=== PATIENT | female | born 1980 | race Caucasian/White ===

== ENCOUNTER 2018-07-20 10:22 | Inpatient (IN) | payer SELFPAY ==
[2018-07-20] VITALS (18 sets, daily range): BP systolic 116–144; BP diastolic 62–95; PULSE 59–75; RESP 15–18; TEMP 36.1–37; O2SAT 95–100; BMI 38.9
[2018-07-20 11:08] LABS: Absolute Neutrophil Count 7.8 X10^3/uL (2.0-7.7); Basophil# 0.02 X10^3/uL; Basophil% 0.2 % (0-1); Eosinophil# 0.07 X10^3/uL; Eosinophils% 0.7 % (0-5); Hematocrit 37.1 % (37-47); Hemoglobin 12.4 g/dl (12.0-15.0); Lymphocyte % 14.1 % (19-41); Mean Corp Hgb Conc 33.4 g/gl (32-36); Mean Corpuscular Hgb 31.1 pg (27.0-32.0); Mean Platelet Vol. 10.7 fl (6.2-12.0); Monocyte# 0.63 X10^3/uL; Monocyte% 6.4 % (0-10); Neutrophil # 7.78 X10^3/uL (2.7-7.7); Neutrophil % 78.5 % (47-70); Platelet Count 273 K/mm3 (150-450); RBC Distribution Width CV 13.2 % (11.6-14.6); RBC Distribution Width SD 44.8 fl (35.1-43.9); Red Blood Count 3.99 M/mm3 (4.2-5.4); White Blood Count 9.9 K/mm3 (4.4-11.0)
[2018-07-20 11:09] LABS: POSITIVE COUNT NO; POSITIVE DIFFERENTIAL NO; POSITIVE MORPHOLOGY NO
[2018-07-20 11:20] LABS: Prothrombin Time (Protime)PT. 13.4 SECONDS (11.7-14.9)
[2018-07-20] MEDS: Lactated Ringers 1,000 ML 999 ML IV (11:20)
[2018-07-20 11:21] LABS: Partial Thromboplast Time 30.2 Seconds (24.1-36.2)
[2018-07-20] MEDS: Lactated Ringers 1,000 ML 150 ML IV (12:03)
[2018-07-20] MEDS: Sodium Citrate/Citric Acid 30 ML UDC PO (12:16)
[2018-07-20] MEDS: Cefazolin 2 GM in 0.9% Normal Saline 100 ML IV (12:26)
--- NOTE | 2018-07-20 12:32 | PCM.OPRPT ---
Report of Operation Date of Procedure: 07/20/18 Pre-Operative Diagnosis: Prior Section Post-Operative Diagnosis: Prior Section Surgery/Procedure Performed:: Repeat Low Transverse Cervical Section Description of Surgical Findings:: Viable male weighing 8 pounds 7 ounces with Apgars of 8/9 in an occiput anterior presentation with clear amniotic fluid and normal three-vessel placenta. avionic technician: Carolee Cherry Type of Anesthesia:: Spinal - With Duramorph Anesthesiologist: Mikey Carter Drains: Kunz to straight drain Estimated Blood Loss (mL): 500 cc Fluids Replaced: Crystalloid Description of Procedure: Surgeon: Fidel Noe MD, FACOG Indication: This is a 38-year-old who presents for her second at 39+ weeks gestation. care has otherwise been uneventful. The patient originally wanted to have a delivery but when her cervix was closed and thick at nearly 40 weeks gestation she decided to proceed with repeat section. The patient has been counseled regarding the risk and indications of this procedure including the possibility of bleeding infection and injury to surrounding structures such as bowel bladder. All questions were answered. Procedure: Patient was taken to the operating room where after spinal anesthesia was placed, the patient was prepped and draped in usual sterile fashion and a Kunz catheter was placed. The abdomen was entered through the patient's prior Pfannenstiel incision and peritoneum was entered bluntly. After developing a bladder flap on the lower uterine segment a low transverse incision was made on the uterus and head was easily delivered onto the operative field the nose mouth and oropharynx were bulb suctioned. Subsequently a viable male was born with Apgars of 8/9. The was noted to cry move all extremities vigorously on the operative field. The umbilical cord was doubly clamped and ligated and infant handed to the nursery personnel who were present for the delivery. Placenta was delivered and noted to be 3 vessels and normal. Uterus was exteriorized and remaining placental tissue was removed. The uterus was then closed in 2 layers first with running locked 0 Vicryl suture followed by a second imbricating layer with 0 Vicryl suture. 0 Vicryl suture was then used in a horizontal mattress interrupted fashion to affect final hemostasis of the uterine incision line. Normal fallopian tubes and ovaries were visualized and the uterus was returned to the pelvis. Hemostasis was noted and rectus abdominis muscles were reapproximated in the midline with interrupted Number 0 Vicryl suture in a horizontal mattress fashion. Fascia was closed with running Number 1 PDS Strata fix suture. Subcutaneous tissue was irrigated with copious amouts of saline solution and then closed with running 3-0 Vicryl suture. Skin was closed with 4-0 monocryl suture in a running subcuticular fashion. Steri strips, telfa, and tape were placed across the incision. The patient tolerated the procedure well and was taken to the recovery room in satisfactory condition. Sponge, needle, and instrument counts were all reportedly correct. EBL was less than 500 cc. Ancef 2 gms IV was given prior to the procedure. Spicemen to Pathology: None Grafts/Implants Used: None - Complications None - Admit VTE Documentation VTE Present on Admission: Yes VTE Mechan Device Prophylaxis: SCD's
--- NOTE | 2018-07-20 12:36 | DCINST_ITS ---
Discharge Diet: No Restrictions Discharge Activity: May Not Drive - for 2 weeks, May not drive while taking narcotic pain medications., May Shower, May Take a Tub Bath May resume sexual activity in: 4-6 weeks Lifting Restrictions: 20 pounds Additional Activity Instructions:: Nothing in the vagina for 4-6 weeks. You may return to work/school in 6 weeks. Call your doctor if your incision/area has: Continuous Slow Oozing, Sudden Increased Bleeding, Increased Pain/ Swelling, Increased Redness, Foul Smelling Discharge Call your doctor if you observe: Fever of 101 or Higher, Inability to urinate, Inability to have a bowel movement, Using more than one pad per hour Additional Instructions: If you experience any of the following, contact your healthcare provider. * Bleeding that soaks a pad every hour for 2 hours * Unrelieved incision or abdominal pain * Swelling, redness, discharge or bleeding from your incision or episiotomy site * Your incision begins to separate * Problems urinating (including inability to urinate or burning while urinating). * Visual changes * Severe headache * Flu-like symptoms * Pain or redness in one of both of your breasts * Pain, warmth, tenderness or swelling in your legs, especially the calf area * Frequent nausea and vomiting * Symptoms of depression or anxiety If you experience any of the following, call 911 or go to the nearest Emergency Room. * Chest pain * Problems breathing * Seizure activity * Partial or complete paralysis of a body part, slurred speech, weakness or drooping of the face, or a sudden inability to walk or hold your balance Allergies/Adverse Reactions: Allergies No Known Allergies Allergy (Verified 07/20/18 10:30) Medications to take at Discharge Docusate Sodium [Colace] 100 mg PO BID PRN PRN #60 cap 07/20/18 Labetalol [Trandate] 100 mg PO BID 07/20/18 Oxycodone [Oxyir] 5 mg PO Q6H PRN PRN 7 Days #20 tab 07/20/18 No122/Iron/Folic Acid [ Multi Tablet] 07/20/18 Sertraline HCl 25 mg PO 07/20/18 The following prescriptions were given: Oxycodone [Oxyir] 5 mg PO Q6H PRN PRN 7 Days #20 tab PRN Reason: Severe Pain (-01/12) Docusate Sodium [Colace] 100 mg PO BID PRN PRN #60 cap PRN Reason: Constipation Follow-Up: Call to make an appointment with your doctor for an incision check in 1-2 weeks. You will also need a 6 week post- follow up appointment. Test results from this visit will be discussed in further detail at your follow- up appointment, if applicable. Please Follow Up With: Fidel Noe MD - [phone] When: Call to make an appointment for an incision check in 2 weeks. Primary Care Physician: Care Physician,No Primary [Primary Care Provider] -
[2018-07-20] MEDS: Oxytocin 30 units/NS 500 ml 30 UNITS/500 ML IV.SOLN 167 UNITS IV (12:55)
[2018-07-20] MEDS: Ketorolac 30 MG/ML Syringe IV ×2 (13:28→18:47)
[2018-07-20] MEDS: Lactated Ringers 1,000 ML 100 ML IV (17:06)
[2018-07-20] MEDS: Cefazolin 1 GM/50 ML BAG IV (21:05)
[2018-07-21] VITALS (12 sets, daily range): BP systolic 126–148; BP diastolic 84–93; PULSE 71–86; RESP 14–18; TEMP 36.6–37.1; O2SAT 96–99
[2018-07-21] MEDS: Ketorolac 30 MG/ML Syringe IV ×4 (00:05→18:10)
[2018-07-21] MEDS: 0.9% Saline Lock 10 ML Syringe IV ×2 (00:05→06:00)
[2018-07-21] MEDS: Lactated Ringers 1,000 ML 100 ML IV (03:20)
[2018-07-21] MEDS: Cefazolin 1 GM/50 ML BAG IV (05:06)
[2018-07-21 05:39] LABS: Hematocrit 31.3 % (37-47); Hemoglobin 10.5 g/dl (12.0-15.0); Mean Corp Hgb Conc 33.5 g/gl (32-36); Mean Corpuscular Hgb 31.2 pg (27.0-32.0); Mean Corpuscular Volume 92.9 fL (81-99); Mean Platelet Vol. 10.3 fl (6.2-12.0); Platelet Count 201 K/mm3 (150-450); RBC Distribution Width CV 13.2 % (11.6-14.6); RBC Distribution Width SD 44.3 fl (35.1-43.9); Red Blood Count 3.37 M/mm3 (4.2-5.4); White Blood Count 11.6 K/mm3 (4.4-11.0)
[2018-07-21 06:04] LABS: Scan Indicated on CBC? Y/N NO
--- NOTE | 2018-07-21 09:24 | PCM.PN.OB ---
Subjective: Patient without complaints. Tolerating diet well. Minimal vaginal bleeding. Bottle feeding today. - Physical Exam Vital Signs Temp Pulse Resp BP Pulse Ox 97.8 F 75 16 147/91 H 98 07/21/18 08:30 07/21/18 08:30 07/21/18 08:30 07/21/18 08:30 07/21/18 08:30 Oxygen Delivery Method Room Air Weight: 227 lb Body Mass Index (BMI) 38.9 Intake and Output for Last 24 Hours 07/19/18 07/20/18 07/21/18 23:59 23:59 23:59 Intake Total 3321 / 3321 1793 / 1793 Output Total 650 / 650 800 / 800 Balance 2671 / 2671 993 / 993 Laboratory Tests Past 24 Hrs 07/20/18 07/20/18 07/20/18 10:50 10:50 10:50 WBC 9.9 RBC 3.99 L Hgb 12.4 Hct 37.1 MCV 93.0 MCH 31.1 MCHC 33.4 RDW 13.2 RDW Differential 44.8 H Plt Count 273 MPV 10.7 Immature Gran % (Auto) 0.100 Neut % (Auto) 78.5 H Lymph % (Auto) 14.1 L Alexander % (Auto) 6.4 Eos % (Auto) 0.7 Baso % (Auto) 0.2 Absolute Neuts (auto) 7.8 H Absolute Lymphs (auto) 1.40 Total Counted Not Reportable PT 13.4 INR 1.0 APTT 30.2 Blood Type A POSITIVE Antibody Screen NEGATIVE 07/21/18 05:05 WBC 11.6 H RBC 3.37 L Hgb 10.5 L Hct 31.3 L MCV 92.9 MCH 31.2 MCHC 33.5 RDW 13.2 RDW Differential 44.3 H Plt Count 201 MPV 10.3 Immature Gran % (Auto) Neut % (Auto) Lymph % (Auto) Alexander % (Auto) Eos % (Auto) Baso % (Auto) Absolute Neuts (auto) Absolute Lymphs (auto) Total Counted PT INR APTT Blood Type Antibody Screen Wound is clean, dry, intact. Good urine output. Hemoglobin stable. Medical Necessity - Tobacco Use Smoking Status: Never smoker Assessment/Plan Doing well postoperative day #1 status post repeat . Blood pressure edging up and was on labetalol at home prior to delivery. Will resume labetalol today. Otherwise, continuing present care.
[2018-07-21] MEDS: Sertraline 50 MG Tablet 25 MG PO (10:07)
[2018-07-21] MEDS: Labetalol 100 MG Tablet 50 MG PO ×2 (10:11→21:49)
--- NOTE | 2018-07-21 12:03 | CASEMGMT ---
Addendum entered by Milly Cervantes 07/21/18 17:47: STUDENT CAP AND HAT PRODUCTION SUPERVISOR ASSESSMENT REVIEWED. MILLY CERVANTES, DIVISION ROADMASTER, VOUCHER CLERK. Original Note: Social Work Labor and Delivery Date of Referral:07/21/18 Time of Referral:0738 Referred By: Dr Noe Date of Intervention:07/21/18 Time of Intervention: 1115am Reason for referral: history of post depression History obtained from: medical record, mother of baby Angela Medina (MOB) Household Composition: MOB lives with father of the baby (FOB) Jaylon Medina and their children Mayra (13), Danyelle (11), Beny (9), Ryan (6), and iRvas (4). MOB denies any safety concerns in the home. Patient's parent/guardian status: MOB and FOB are . MOB denies any history of domestic violence Medical History: ASHLEY is to 6 after of baby Estrella. Esrtella was born on 07/20/18 at 8lbs and 7oz with scores of 8 and 9. Educational Status: MOB has completed through the 8th grade. MOB confirmed to be able to read, write, and comprehend. 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 Infant Supplies: MOB reports to have car seat for traveling, crib for sleeping, clothing, diapers, wipes, formula, and a breast pump. Childcare/givers: MOB and FOB will be main childcare givers. MOB's oldest children will help with childcare. Transportation: MOB reported no issues with transportation. Programs/agencies involved: MOB and FOB are not involved with any agencies. MOB declined [facility] referral. Children services/legal Issues: MOB denied any history of children services or legal issues. Behavioral Health Issues: Mental Health History: MOB reported to have been diagnosed with depression after an experience with eclampsia. MOB has treatment by medication with Zoloft. MOB reports to have no plans to end medication. MOB denies any past or present thoughts of suicide. Substance use history: MOB denies any substance use history. Family history: MOB did not identify any family history concerns. Drug screens: MOB was not administered any drug screens. Family/social stressors: MOB reported to have been on 1 month of bedrest during that was a stressor. Support Systems: MOB reports FOB to be main support. MOB will not be having 6 week helper as oldest daughter is able to help now that school has ended for the year. PPD/ Shaken baby/ safe sleeping: Information reviewed with MOB and MOB showed understanding of precautions and signs and symptoms of PPD. ASSESSMENT: MOB was alone in room feeding baby [place]. MOB was calm and pleasant during conversation. MOB answered all questions appropriately. MOB reported to have been placed on Zoloft after a that had eclampsia issues. MOB expressed that PPD was sadness from difficulty other children. MOB has been doing combination feedings with breast milk and formula. MOB reports to be doing well and is not interested in any counseling resources at this time. MOB has no plans to end the Zoloft as treatment. MOB is looking forward to returning home with baby Atlee. PLAN: MOB to home with baby. PPD/Safe sleeping and resources provided. No other services indicated or requested at this time -Soraida Alcantara, ORNAMENTAL METAL ERECTOR APPRENTICE [employer].
[2018-07-22] MEDS: 0.9% Saline Lock 10 ML Syringe IV (00:32)
[2018-07-22] MEDS: Ibuprofen 600 MG Tablet PO ×3 (00:41→12:28)
[2018-07-22 02:15] VITALS: BP 145/85; PULSE 76; RESP 18; TEMP 36.1; O2SAT 97
[2018-07-22 07:45] VITALS: BP 145/90; BP 146/88; PULSE 62; RESP 18; TEMP 36.6
--- NOTE | 2018-07-22 08:33 | PCM.PN.OB ---
Subjective: Patient without complaints. Tolerating diet well. Bottlefeeding. Ready to go home today if baby is able to go. - Physical Exam Vital Signs Temp Pulse Resp BP Pulse Ox 98 F 62 18 145/90 H 97 07/22/18 07:45 07/22/18 07:45 07/22/18 07:45 07/22/18 07:45 07/22/18 02:15 Oxygen Delivery Method Room Air Weight: 227 lb Body Mass Index (BMI) 38.9 Intake and Output for Last 24 Hours 07/20/18 07/21/18 07/22/18 23:59 23:59 23:59 Intake Total 3321 / 3321 2419 / 2419 Output Total 650 / 650 3200 / 3200 Balance 2671 / 2671 -781 / -781 Wound is clean, dry, intact. Good urine output. Blood pressures stable on labetalol 50 mg twice daily. Medical Necessity - Tobacco Use Smoking Status: Never smoker Assessment/Plan Doing well postoperative day #2 status post repeat . Will release to home with routine instructions. Instructed patient to use labetalol 100 mg twice daily as blood pressures are mildly elevated post delivery. Follow-up in 2 weeks.
[2018-07-22] MEDS: Sertraline 50 MG Tablet 25 MG PO (10:15)
[2018-07-22] MEDS: Labetalol 100 MG Tablet 50 MG PO (10:15)
[2018-07-22 13:37] VITALS: BP 153/82; PULSE 72; RESP 18; TEMP 37
== END 2018-07-22 14:00 | disposition home or self-care (01) | DRG 788 ==
PROVIDERS: Admitting Provider Obstetrics & Gynecology; Referring Provider Obstetrics & Gynecology; Visit Provider Obstetrics & Gynecology
PROC: 10D00Z1 Extraction of Products of Conception, Low, Open Approach (ICD-10-PCS; CPT 59514; principal; 2018-07-20 11:45)
DX: O34.211 Maternal care for low transverse scar from previous cesarean delivery (principal); N85.8 Other specified noninflammatory disorders of uterus; Z3A.39 39 weeks gestation of pregnancy; Z37.0 Single live birth
CPT/HCPCS: 85025; 85027; 85610; 85730; 86850; 86900; 99218; J7120; A4216; G0378; J2405

== ENCOUNTER → 2018-07-25 | Outpatient (CLI) | payer SELFPAY ==
[2018-07-20 10:29] VITALS: BMI 38.9
[2018-07-25 16:37] LABS: Hematocrit 37.7 % (37-47); Hemoglobin 12.6 g/dl (12.0-15.0); Mean Corp Hgb Conc 33.4 g/gl (32-36); Mean Corpuscular Volume 92.9 fL (81-99); Mean Platelet Vol. 9.5 fl (6.2-12.0); Platelet Count 351 K/mm3 (150-450); RBC Distribution Width CV 12.9 % (11.6-14.6); Red Blood Count 4.06 M/mm3 (4.2-5.4); White Blood Count 8.6 K/mm3 (4.4-11.0)
[2018-07-25 16:44] LABS: Scan Indicated on CBC? Y/N NO
[2018-07-25 16:45] LABS: AST(SGOT) 22 U/L (15-37); Alanine Aminotransfer ALT/SGPT 30 U/L (13-56); Uric Acid 5.2 mg/dL (2.6-6.0)
== END | disposition home or self-care (01) ==
LOC: WOBLAB 15:59
PROVIDERS: Visit Provider Obstetrics & Gynecology
DX: O13.5 Gestational [pregnancy-induced] hypertension without significant proteinuria, complicating the puerperium (principal)
CPT/HCPCS: 36415; 84450; 84460; 84550; 85027